=== PATIENT | female | born 1955 ===

== ENCOUNTER 2018-04-14 19:20 | Emergency (ER) | payer MEDICARE, MEDICAID ==
[~2018-04-14] VITALS: Ht 167.6 cm; Wt 60.9 kg
[2018-04-14 19:37] VITALS: BP 96/56
== END 2018-04-14 19:39 ==
LOC: ER 19:21
DX: S80.212A Abrasion, left knee, initial encounter (principal); S80.811A Abrasion, right lower leg, initial encounter; Z02.89 Encounter for other administrative examinations; G89.29 Other chronic pain; F17.210 Nicotine dependence, cigarettes, uncomplicated; V89.2XXA Person injured in unspecified motor-vehicle accident, traffic, initial encounter; Y93.89 Activity, other specified; Y92.488 Other paved roadways as the place of occurrence of the external cause; Y99.8 Other external cause status
CPT/HCPCS: 99283